=== PATIENT | female | born 1945 | race Caucasian/White ===

== ENCOUNTER → 2016-12-27 | Outpatient (CLI) | payer MEDICARE, BC ==
[~2016-12-27] MED LIST: ACET-2321 PO; ASPI81TA2 PO; CHOL100047 PO; ENOX40DI SQ; FAMO20TA8 PO; HYDR-4074 PO; LORA-204 PO; METO10TA3 PO; MULT-933 PO; OMEP40CA52 PO; SENN-152 PO
== END ==
LOC: IMA 14:09
DX: M81.0 Age-related osteoporosis without current pathological fracture (principal); M85.89 Other specified disorders of bone density and structure, multiple sites; Z82.69 Family history of other diseases of the musculoskeletal system and connective tissue; Z87.828 Personal history of other (healed) physical injury and trauma